=== PATIENT | female | born 1985 | race Caucasian/White ===

== ENCOUNTER → 2023-05-14 08:28 | Outpatient (REF) | payer OTHER, SELFPAY | LOC: PNTC 08:28 | PROVIDERS: ATTENDING PHYSICIAN Obstetrics & Gynecology | DX: O09.529 Supervision of elderly multigravida, unspecified trimester (principal) | CPT/HCPCS: 76805 ==

== ENCOUNTER → 2023-07-01 14:15 | Outpatient (REF) | payer OTHER, SELFPAY | LOC: PNTC 14:15 | PROVIDERS: ATTENDING PHYSICIAN Advanced Practice Midwife | DX: O32.9XX0 Maternal care for malpresentation of fetus, unspecified, not applicable or unspecified (principal) | CPT/HCPCS: 76816 ==